=== PATIENT | female | born 1995 | race African-American/Black ===

== ENCOUNTER 2017-12-17 13:10 | Emergency (ER) | payer OTHER ==
[~2017-12-17] VITALS: Ht 165.1 cm; Wt 71.0 kg
[~2017-12-17 13:10] MED LIST: AMOX500T PO; TRAM50TA PO
[2017-12-17 13:22] VITALS: BP 124/74
[2017-12-17] MEDS ORDERED: HYDR30CR61 TP (13:40)
[2017-12-17] MEDS ORDERED: HYDR25TA PO (13:40)
[2017-12-17] MEDS ORDERED: IBUP800T19 PO (13:40)
--- NOTE | 2017-12-17 13:40 | PHYS DOC ---
Past History Past Medical History: No Pertinent History Past Surgical History: No Surgical History Smoking: Non-smoker Alcohol Use: None Drug Use: None Adult General Chief Complaint Chief Complaint: HEMORRHOIDS HPI HPI 22-year-old female patient state she had under stress and for the last 10 days did not eat well and did not have a good bowel movement for the last 7 days but had a loose stool yesterday and since last night had pain in the perianal area that getting worse with walking and straining herself. Patient denies fever and chills, history of anal fissure or hemorrhoid, constipation, abdominal pain, nausea and vomiting, . Patient states she took sitz bath without improvement of condition. Review of Systems Review of Systems Constitutional: Denies fever or chills [] Eyes: Denies change in visual acuity, redness, or eye pain [] HENT: Denies nasal congestion or sore throat [] Respiratory: Denies cough or shortness of breath [] Cardiovascular: No additional information not addressed in HPI [] GI: Denies abdominal pain, nausea, vomiting, bloody stools or diarrhea [] : Denies dysuria or hematuria [] Musculoskeletal: Denies back pain or joint pain [] Integument: Denies rash or skin lesions [] Neurologic: Denies headache, focal weakness or sensory changes [] Endocrine: Denies polyuria or polydipsia [] All other systems were reviewed and found to be within normal limits, except as documented in this note. Allergies Allergies Allergies Coded Allergies Type Severity Reaction Last Updated Verified No Known Drug Allergies 08/16/16 No Physical Exam Physical Exam Constitutional: Well developed, well nourished, mild distress, non-toxic appearance. [] HENT: Normocephalic, atraumatic Eyes: PERRLA, EOMI, conjunctiva normal, no discharge. [] Neck: Normal range of motion, no tenderness, supple, no stridor. [] Cardiovascular:Heart rate regular rhythm, no murmur [] Lungs & Thorax: Bilateral breath sounds clear to auscultation [] Abdomen: Bowel sounds normal, soft, no tenderness, no masses, no pulsatile masses. Rectal exam with present of cooling pan tender showed moderate tach at 5 and 7 o;clock inflammation without sign of thrombosed or anal fissure. Skin: Warm, dry, no erythema, no rash. [] Back: No tenderness, no CVA tenderness. [] Extremities: No tenderness, no cyanosis, no clubbing, ROM intact, no edema. [] Neurologic: Alert and oriented X 3, normal motor function, normal sensory function, no focal deficits noted. [] Psychologic: Affect normal, judgement normal, mood normal. [] EKG EKG [] Radiology/Procedures Radiology/Procedures [] Course & Med Decision Making Course & Med Decision Making discharge: I've spoken with the patient and/or caregivers. I've explained the patient's condition, diagnosis and treatment plan based on information available to me at this time. I've answered the patient's and/or caregivers questions and addressed any concerns. The patient and/or caregivers have a good understanding the patient's diagnosis, condition and treatment plan as can be expected at this point. Vital signs have been stabilized. The patient's condition is stable for discharge from the emergency department. The patient will pursue further outpatient evaluation with her primary care provider or other designated consulting physician as outlined in the discharge instructions. Patient and/or caregivers are agreeable to this plan of care and follow-up instructions have been explained in detail. The patient and/or caregivers have received these instructions in written format and expressed understanding of these discharge instructions. The patient and her caregivers are aware that if any significant change in condition or worsening of symptoms should prompt him to immediately return to this of the closest emergency department. If an emergent department is not readily available I would encourage him to call 911. Shen Disclaimer Shen Disclaimer This electronic medical record was generated, in whole or in part, using a voice recognition dictation system. Departure Departure: Impression: Primary Impression: Inflamed external hemorrhoid Additional Impressions: Anxiety Constipation Disposition: HOME, SELF-CARE (At 1336) Condition: STABLE Referrals: ANTHONY CHIN MD (PCP) Patient Instructions: Anxiety and Panic Attacks, Constipation, Adult, Hemorrhoids, Sitz Bath Additional Instructions: Drink plenty of liquids Follow-up with your primary care physician in 3-5 days Return to ER if not getting better Scripts Ibuprofen (IBUPROFEN) 800 Mg Tablet 1 TAB PO TID, #30 TAB Prov: GEORGE AGOSTO MD 12/17/17 Hydroxyzine Hcl (HYDROXYZINE HCL) 25 Mg Tablet 1 TAB PO QHS, #20 TAB Prov: GEORGE AGOSTO MD 12/17/17 Hydrocortisone (ANUSOL-HC) 30 Gm Cream..g. 1 DELIA TP BID, #30 GM 1 Refill Prov: GEORGE AGOSTO MD 12/17/17 Problem Qualifiers GEORGE AGOSTO MD Dec 17, 2017 13:40
== END 2017-12-17 13:45 | disposition home or self-care (01) ==
LOC: ER 13:10
DX: K64.4 Residual hemorrhoidal skin tags (principal); F41.9 Anxiety disorder, unspecified; K59.00 Constipation, unspecified
CPT/HCPCS: 99283

== ENCOUNTER 2018-09-23 12:10 | Emergency (ER) | payer OTHER ==
[~2018-09-23] VITALS: Ht 160 cm; Wt 72.6 kg
[2018-09-23 12:10] VITALS: BP 113/70
[~2018-09-23 12:10] MED LIST changes: +HYDR25TA PO; +HYDR30CR61 TP; +IBUP800T19 PO
[2018-09-23] MEDS ORDERED: NAPR-695 PO (12:23)
[2018-09-23] MEDS ORDERED: CHLO15MO2 PO (12:24)
--- NOTE | 2018-09-23 12:24 | PHYS DOC ---
Past History Past Medical History: No Pertinent History Past Surgical History: Smoking: Non-smoker Alcohol Use: None Drug Use: None Adult General Chief Complaint Chief Complaint: DENTAL PROBLEM HPI HPI 23-year-old female presents with report of left mandibular dental pain primarily to wisdom tooth. Patient reports has had this pain for the last few weeks. Patient was supposed to follow up with dentist regarding wisdom tooth extraction but has not been able to. Reports some increased swelling to this area. Denies fever or chills. Denies known dental caries. Denies . Review of Systems Review of Systems Constitutional: Denies fever or chills [] HENT: Denies nasal congestion; reports toothache GI: Denies abdominal pain, nausea, vomiting, bloody stools or diarrhea [] /SOLAR PANEL INSTALLER: Denies dysuria or Integument: Denies rash or skin lesions [] Complete systems were reviewed and found to be within normal limits, except as documented in this note. Allergies Allergies Allergies Coded Allergies Type Severity Reaction Last Updated Verified No Known Drug Allergies 12/17/17 No Physical Exam Physical Exam Constitutional: Well developed, well nourished, no acute distress, non-toxic appearance. [] HENT: Normocephalic, atraumatic, oropharynx moist, gingival inflamed to left mandibular 3rd molar, no dental caries noted, prior dental filings to molars noted, no drainable abscess Eyes: Conjunctiva normal, no discharge. [] Neck: Normal range of motion, no tenderness, supple Lungs & Thorax: NO respiratory distress, normal respiratory rate Skin: Warm, dry Neurologic: Alert and oriented X 3, speech normal Psychologic: Affect normal, judgement normal, mood normal. [] EKG EKG [] Radiology/Procedures Radiology/Procedures [] Course & Med Decision Making Course & Med Decision Making Patient presents with report of dental pain to left third maxillary molar. No signs of drainable abscess. No signs of active dental caries. Symptomatic treatment offered with dental block which patient declined. IM Toradol therefore ordered but again patient refused. Patient stable for discharge with outpatient follow-up with PCP/dentist. Dental referral packet provided. Discussed findings and plan with patient, who acknowledges understanding and agreement. Dragon Disclaimer Dragon Disclaimer This electronic medical record was generated, in whole or in part, using a voice recognition dictation system. Departure Departure: Impression: Primary Impression: Dentalgia Disposition: HOME, SELF-CARE Condition: STABLE Referrals: ANTHONY CHIN MD (PCP) Patient Instructions: Toothache-Brief Scripts Chlorhexidine Gluconate (PERIDEX) 15 Ml Mouthwash 15 ML PO BID for dentalgia, #946 ML Prov: SONI COLON DO 09/23/18 Naproxen (NAPROXEN) 375 Mg Tablet 1 TAB PO TID PRN PRN for PAIN, #20 TAB 0 Refills Prov: SONI COLON DO 09/23/18 SONI COLON DO Sep 23, 2018 12:24
[2018-09-23] MEDS ORDERED: KETOROLAC 30 MG/ML VIAL. IM ONE (12:45)
== END 2018-09-23 12:35 | disposition home or self-care (01) ==
LOC: ER 12:10
DX: K08.89 Other specified disorders of teeth and supporting structures (principal); R22.0 Localized swelling, mass and lump, head
CPT/HCPCS: 99283

== ENCOUNTER 2019-10-13 01:03 | Emergency (ER) | payer OTHER ==
[~2019-10-13] VITALS: Ht 165.1 cm; Wt 89.8 kg
[~2019-10-13 01:03] MED LIST changes: +CHLO15MO2 PO; +NAPR-695 PO
[2019-10-13 01:10] VITALS: BP 109/42
[2019-10-13 01:44] LABS: BACTERIA,URINE FEW /HPF (0-FEW); BILIRUBIN,URINE NEG (NEG); CLARITY,URINE HAZY; COLOR,URINE YELLOW; GLUCOSE,URINE NEG (NEG); NITRITE,URINE NEG (NEG); RBC,URINE OCC /HPF (0-2); SQUAMOUS EPITHELIAL CELL,UR FEW /LPF; UROBILINOGEN,URINE 0.2 mg/dL (0.2 mg/dL); WBC,URINE >40 /HPF (0-4)
[2019-10-13 01:47] LABS: U PREG PATIENT NEGATIVE (NEG)
[2019-10-13] MEDS ORDERED: CEPH-264 PO (01:50)
--- NOTE | 2019-10-13 01:50 | PHYS DOC ---
Past History Past Medical History: No Pertinent History Past Surgical History: Smoking: Non-smoker Alcohol Use: None Drug Use: None Adult General Chief Complaint Chief Complaint: PAIN ON URINATION HPI HPI Patient is a 24 year old female who presents with complaint of dysuria. The patient states that her symptoms have been present over the past 2 days. His nose increased urinary frequency and burning when urinating. Has not noticed any blood in her urine. States that she has had history of urinary tract infection in the past and states that her symptoms do feel similar. Has not recently been on any antibiotic therapy. Denies pelvic pain, abnormal vaginal bleeding, fever, or vomiting. Hasn't taking medications for symptoms. Review of Systems Review of Systems Constitutional: Denies fever or chills [] Eyes: Denies change in visual acuity, redness, or eye pain [] HENT: Denies nasal congestion or sore throat [] Respiratory: Denies cough or shortness of breath [] Cardiovascular: Denies chest pain or edema[] GI: Denies abdominal pain, nausea, vomiting, bloody stools or diarrhea [] : Dysuria, increased urinary frequency, denies hematuria[] Musculoskeletal: Denies back pain or joint pain [] Integument: Denies rash or skin lesions [] Neurologic: Denies headache, focal weakness or sensory changes [] Endocrine: Denies polyuria or polydipsia [] All other systems were reviewed and found to be within normal limits, except as documented in this note. Allergies Allergies Allergies Coded Allergies Type Severity Reaction Last Updated Verified No Known Drug Allergies 12/17/17 No Physical Exam Physical Exam Constitutional: Well developed, well nourished, no acute distress, non-toxic ap pearance. [] HENT: Normocephalic, atraumatic, bilateral external ears normal, oropharynx moist, no oral exudates, nose normal. [] Eyes: PERRLA, EOMI, conjunctiva normal, no discharge. [] Neck: Normal range of motion, no tenderness, supple, no stridor. [] Cardiovascular:Heart rate regular rhythm, no murmur [] Lungs & Thorax: Bilateral breath sounds clear to auscultation [] Abdomen: Bowel sounds normal, soft, no tenderness, no masses, no pulsatile masses. [] Skin: Warm, dry, no erythema, no rash. [] Back: No tenderness, no CVA tenderness. [] Extremities: No tenderness, no cyanosis, no clubbing, ROM intact, no edema. [] Neurologic: Alert and oriented X 3, normal motor function, normal sensory function, no focal deficits noted. [] Current Patient Data Vital Signs Vital Signs Date Time Temp Pulse Resp B/P (MAP) Pulse Ox O2 Delivery O2 Flow Rate FiO2 10/13/19 01:10 99.0 78 16 99 Room Air Lab Results Laboratory Tests Test 10/13/19 01:21 Urine Collection Type Unknown Urine Color Yellow Urine Clarity Hazy Urine pH 6.5 Urine Specific [place] >=1.030 Urine Protein Neg (NEG-TRACE) Urine Glucose (UA) Neg mg/dL (NEG) Urine Ketones (Stick) Neg mg/dL (NEG) Urine Blood Neg (NEG) Urine Nitrite Neg (NEG) Urine Bilirubin Neg (NEG) Urine Urobilinogen Dipstick 0.2 mg/dL (0.2 mg/dL) Urine Leukocyte Esterase Mod (NEG) Urine RBC Occ /HPF (0-2) Urine WBC >40 /HPF (0-4) Urine Squamous Epithelial Cells Few /LPF Urine Bacteria Few /HPF (0-FEW) Urine Test Negative (NEG) EKG EKG Not performed[] Radiology/Procedures Radiology/Procedures Not performed[] Course & Med Decision Making Course & Med Decision Making Pertinent Labs and Imaging studies reviewed. (See chart for details) Urinalysis shows evidence of urinary tract infection. Started on oral Keflex in the emergency department. Written for seven-day course for outpatient treatment. Advised follow-up with primary doctor in 5 days for reevaluation if symptoms have not improved. Advised return to emergency department for any worsening symptoms. Patient was understanding and in agreement with treatment plan.[] Dragon Disclaimer Dragon Disclaimer This electronic medical record was generated, in whole or in part, using a voice recognition dictation system. Departure Departure: Impression: Primary Impression: Urinary tract infection Disposition: HOME, SELF-CARE Condition: STABLE Referrals: FIDELIA TALBERT MD (PCP) Patient Instructions: Urinary Tract Infection Additional Instructions: Follow-up with your primary doctor in 5 days if symptoms are not improving. Return to the emergency department for any worsening symptoms. Scripts Cephalexin (KEFLEX) 500 Mg Capsule 1 CAP PO BID for 7 Days, #14 CAP 0 Refills Prov: JLUIS MARTINO MD 10/13/19 Problem Qualifiers Primary Impression: Urinary tract infection Urinary tract infection type: site unspecified Hematuria presence: without hematuria Qualified Codes: N39.0 - Urinary tract infection, site not specified JLUIS MARTINO MD Oct 13, 2019 01:50
[2019-10-13] MEDS ORDERED: CEPHALEXIN 250 MG CAPSULE PO ONE (02:00)
== END 2019-10-13 02:16 | disposition home or self-care (01) ==
LOC: ER 01:03
DX: N39.0 Urinary tract infection, site not specified (principal)
CPT/HCPCS: 81001; 81025; 87086; 87186; 99284

== ENCOUNTER 2020-07-21 17:36 | Emergency (ER) | payer OTHER ==
[~2020-07-21] VITALS: Ht 165.1 cm; Wt 83.3 kg
[~2020-07-21 17:36] MED LIST changes: +CEPH-264 PO
[2020-07-21] MEDS ORDERED: ONDANSETRON PF 4 MG/2 ML VIAL. IVP ONE (18:00)
[2020-07-21] MEDS ORDERED: IV NORMAL SALINE 1,000ML 1,000 ML IV ONE (18:00)
[2020-07-21 18:35] LABS: BASO % 0 % (0-3); EOS % 0 % (0-3); HEMATOCRIT 32.1 % (36.0-47.0); LYMPH # 2.7 x10^3/uL (1.0-4.8); LYMPH % 32 % (24-48); MEAN CORPUSCULAR HEMOGLOBIN 23 pg (25-35); MEAN CORPUSCULAR HGB CONC 31 g/dL (31-37); MEAN CORPUSCULAR VOLUME 74 fL (79-100); MONO # 0.6 x10^3/uL (0.0-1.1); MONO % 7 % (0-9); NEUT # 5.3 x10^3uL (1.8-7.7); NEUT % 61 % (31-73); PLATELET COUNT 248 x10^3/uL (140-400); RED BLOOD COUNT 4.34 x10^6/uL (3.50-5.40); RED CELL DISTRIBUTION WIDTH 19.2 % (11.5-14.5); WHITE BLOOD COUNT 8.7 x10^3/uL (4.0-11.0)
[2020-07-21 18:42] LABS: CALCIUM 8.9 mg/dL (8.5-10.1); CREATININE 0.8 mg/dL (0.6-1.0); GFR 105.8; POTASSIUM 3.8 mmol/L (3.5-5.1)
[2020-07-21 18:47] LABS: ALBUMIN 3.8 g/dL (3.4-5.0); ALBUMIN/GLOBULIN RATIO 0.9 (1.0-1.7); TOTAL BILIRUBIN 0.2 mg/dL (0.2-1.0); TOTAL PROTEIN 8.1 g/dL (6.4-8.2)
--- NOTE | 2020-07-21 20:04 | PHYS DOC ---
Past History Past Medical History: No Pertinent History Past Surgical History: Smoking: Non-smoker Alcohol Use: None Drug Use: None General Adult EDM: Chief Complaint: ABDOMINAL PAIN HPI: HPI: "... I ve been vomiting.... I messed my period.... my tummy hurts... now I am hungry.. but I worried I am ... I am worried who is the daddy ... I had sex with 2 people in the same couple days... I have had 3 pregnancies all were complicated by malignant hypertension or that a eclampsia thing ... That was associated with the ... All 3 required C-sections.... emergent... I think they tried to give drugs.. but ended up with C- sections..." Patient is a 25 year old female who presents with above hx and complaints of abdomen discomfort and fear she is . Patient complains of vomiting and late for her menses which is very regular. Patient reportedly did do a urine test at home and she thought it read positive. Patient denies any intake of bad food. Patient denies any vaginal bleeding. Patient denies any active discharge. Patient has had previous STD of trichinosis which was treated. Patient denies any rough sex, dilldo, vibrators, rectal sex. Life time sex partners approx. 20. Patient denies any domestic abuse. Patient not currently on vitamins.. Patient states when she became eclamptic she she is had some loss of memory during these events because she was so sick. Patient is followed locally with Dr. Pabon and Dr. Delong for primary care. Patient currently plans to deliver this baby at [facility]. Does not have a CHIEF CONTRACT OFFICER yet. Patient denies any recent travel outside the [place] area. Patient denies any any specific ill contacts. No recent history of fever or chills. Has been very nauseated and vomited today which cannot be attributed questionable of food. Patient states he has no leg edema like she had when she became eclamptic with previous pregnancies. Patient denies alcohol, tobacco, marijuana or drug use. No history immunosuppression. Review of Systems: Review of Systems: Constitutional: Denies fever or chills Eyes: Denies change in visual acuity HENT: Denies nasal congestion or sore throat Respiratory: Denies cough or shortness of breath Cardiovascular: Denies chest pain or edema GI: Complains of abdomen discomfort, nausea, vomiting,. Patient denies bloody stools or diarrhea . Patient has missed current period. : Denies dysuria Musculoskeletal: Denies back pain or joint pain Integument: Denies rash Neurologic: Denies headache, focal weakness or sensory changes Endocrine: Denies polyuria or polydipsia Lymphatic: Denies swollen glands Psychiatric: Very anxious Family History: Family History: Noncontributory to presentation Current Medications: Current Meds: Current Medications Medications (Trade) Dose Ordered Sig/Maryuri Start Time Stop Time Status Last Admin Dose Admin Ondansetron HCl (Zofran) 4 mg 1X ONCE 07/21/20 18:00 07/21/20 18:01 DC 07/21/20 18:19 4 MG Sodium Chloride 1,000 ml @ 1,000 mls/hr 1X ONCE 07/21/20 18:00 07/21/20 18:59 DC 07/21/20 18:18 1,000 MLS/HR Allergies: Allergies: Allergies Coded Allergies Type Severity Reaction Last Updated Verified No Known Drug Allergies 07/21/20 No Physical Exam: PE: Constitutional: Mild distress, non-toxic appearance. [] HENT: Normocephalic, atraumatic, bilateral external ears normal, oropharynx moist, no oral exudates, nose normal. [] Eyes: PERRLA, EOMI, conjunctiva pale, no discharge. Glasses Neck: Normal range of motion, no tenderness, supple, no stridor. [] Cardiovascular:Heart rate regular rhythm, no murmur [] Lungs & Thorax: Bilateral breath sounds equal at apex on auscultation [] Abdomen: Bowel sounds normal, soft, no tenderness, no masses, no pulsatile masses. Obese. Large scar. Has a healing abscess right gluteal cheek. Vaginal exam shows os is closed. No focal areas of tenderness in adnexal or posterior compartment. Rectal exam hard stool no active bleeding. No cervical motion tenderness.( No availability for bedside ultrasound). No rebound tenderness. Skin: Warm, dry, no erythema, no rash. [] Back: No tenderness, no CVA tenderness. [] Extremities: No tenderness, no cyanosis, no clubbing, ROM intact, no edema. [] Neurologic: Alert and oriented X 3, normal motor function, normal sensory function, no focal deficits noted. [] DTRs are +2 at patella and brachial. Psychologic: Affect very anxious , judgement normal, mood normal. [] Current Patient Data: Labs: Laboratory Tests Test 07/21/20 18:13 White Blood Count 8.7 x10^3/uL (4.0-11.0) Red Blood Count 4.34 x10^6/uL (3.50-5.40) Hemoglobin 10.0 g/dL (12.0-15.5) L Hematocrit 32.1 % (36.0-47.0) L Mean Corpuscular Volume 74 fL (79-100) L Mean Corpuscular Hemoglobin 23 pg (25-35) L Mean Corpuscular Hemoglobin Concent 31 g/dL (31-37) Red Cell Distribution Width 19.2 % (11.5-14.5) H Platelet Count 248 x10^3/uL (140-400) Neutrophils (%) (Auto) 61 % (31-73) Lymphocytes (%) (Auto) 32 % (24-48) Monocytes (%) (Auto) 7 % (0-9) Eosinophils (%) (Auto) 0 % (0-3) Basophils (%) (Auto) 0 % (0-3) Neutrophils # (Auto) 5.3 x10^3uL (1.8-7.7) Lymphocytes # (Auto) 2.7 x10^3/uL (1.0-4.8) Monocytes # (Auto) 0.6 x10^3/uL (0.0-1.1) Eosinophils # (Auto) 0.0 x10^3/uL (0.0-0.7) Basophils # (Auto) 0.0 x10^3/uL (0.0-0.2) Sodium Level 136 mmol/L (136-145) Potassium Level 3.8 mmol/L (3.5-5.1) Chloride Level 101 mmol/L (98-107) Carbon Dioxide Level 24 mmol/L (21-32) Anion Gap 11 (6-14) Blood Urea Nitrogen 9 mg/dL (7-20) Creatinine 0.8 mg/dL (0.6-1.0) Estimated GFR (Cockcroft-Gault) 105.8 BUN/Creatinine Ratio 11 (6-20) Glucose Level 90 mg/dL (70-99) Calcium Level 8.9 mg/dL (8.5-10.1) Total Bilirubin 0.2 mg/dL (0.2-1.0) Aspartate Amino Transferase (AST) 15 U/L (15-37) Alanine Aminotransferase (ALT) 16 U/L (14-59) Alkaline Phosphatase 53 U/L (46-116) Total Protein 8.1 g/dL (6.4-8.2) Albumin 3.8 g/dL (3.4-5.0) Albumin/Globulin Ratio 0.9 (1.0-1.7) L Lipase 135 U/L (73-393) Vital Signs: Vital Signs Date Time Temp Pulse Resp B/P (MAP) Pulse Ox O2 Delivery O2 Flow Rate FiO2 07/21/20 17:48 99.0 89 18 114/76 (89) 99 Room Air EKG: EKG: [] Radiology/Procedures: Radiology/Procedures: [] Heart Score: Risk Factors: Risk Factors: DM, Current or recent (<one month) smoker, HTN, HLP, family history of CAD, obesity. Risk Scores: Score 0 - 3: 2.5% MACE over next 6 weeks - Discharge Home Score 4 - 6: 20.3% MACE over next 6 weeks - Admit for Clinical Observation Score 7 - 10: 72.7% MACE over next 6 weeks - Early Invasive Strategies Course & Med Decision Making: Course & Med Decision Making Pertinent Labs and Imaging studies reviewed. (See chart for details) Clear fluid diet only x 24 hrs. if active vomiting. Push fruit juices. Take daily with iron. Follow up pending cultures. Establish care with an CHIEF CONTRACT OFFICER and follow-up at the hospital you elect to deliver for continuity of care. Pt. declined to wait for US exam. Advised [facility] was already coming for US exam of the woman next door to her. Patient declined to wait for this exam. Patient given a prescription for vitamins with iron. Patient encouraged to return if any concerns but recommended she follow-up at the hospital where she plans to deliver for continuity of lab and physician care. Impression: 1. Abdomen pain 2. Nausea and vomiting 3. Gravid 4, term 3 by 4. History of preeclampsia and eclampsia with previous pregnancies 5. Microcytic hypochromic anemia Hgb= 10, MCV 74, HC 23 6. Blood Type A + Positive 7. [facility] [place]= [id number] - [] Dragon Disclaimer: Dragon Disclaimer: This electronic medical record was generated, in whole or in part, using a voice recognition dictation system. Departure Departure: Disposition: 01 DC HOME SELF CARE/HOMELESS Condition: STABLE Referrals: ANGELI DANIELS (PCP) Scripts #103/Iron Fumarate/Fa ( TABLET) 1 Each Tablet 1 TAB PO BID for ANEMIA, for 90 Days, #180 TAB 0 Refills Prov: NADIR WONG MD 07/21/20 Shen Disclaimer This chart was dictated in whole or in part using Voice Recognition software in a busy, high-work load, and often noisy Emergency Department environment. It may contain unintended and wholly unrecognized errors or omissions. Dragon Disclaimer This chart was dictated in whole or in part using Voice Recognition software in a busy, high-work load, and often noisy Emergency Department environment. It may contain unintended and wholly unrecognized errors or omissions. NADIR WONG MD Jul 21, 2020 20:04
[2020-07-21 20:14] LABS: BILIRUBIN,URINE NEG (NEG); CLARITY,URINE HAZY; COLOR,URINE AMBER; GLUCOSE,URINE NEG (NEG); NITRITE,URINE NEG (NEG); UROBILINOGEN,URINE 0.2 mg/dL (0.2 mg/dL)
[2020-07-21 20:15] LABS: BACTERIA,URINE 0 /HPF (0-FEW); RBC,URINE 0 /HPF (0-2); SQUAMOUS EPITHELIAL CELL,UR MOD /LPF; WBC,URINE RARE /HPF (0-4)
[2020-07-21 20:44] LABS: BARBITURATES NEG (NEG); BENZODIAZEPINES NEG (NEG); CANNABINOIDS POS (NEG); COCAINE NEG (NEG); METHADONE NEG (NEG); OPIATES POS (NEG); PHENCYCLIDINE NEG (NEG)
[2020-07-21 20:45] LABS: AMPHETAMINE/METHAMPHETAMINE NEG (NEG)
[2020-07-21] MEDS ORDERED: PREN-14 PO (21:42)
[2020-07-21 22:25] VITALS: BP 122/65
[2020-07-23 21:09] LABS: CHLAMYDIA PROBE Negative (Negative)
== END 2020-07-21 22:30 | disposition home or self-care (01) ==
LOC: ER 17:36
DX: O21.9 Vomiting of pregnancy, unspecified (principal); O99.011 Anemia complicating pregnancy, first trimester; R10.9 Unspecified abdominal pain; Z3A.00 Weeks of gestation of pregnancy not specified
CPT/HCPCS: 36415; 80053; 80307; 81001; 81025; 82150; 83690; 84702; 85025; 86900; 86901; 87086; 87491; 87591; 96361; 96374; 99283; J2405; J7030; Q0111

== ENCOUNTER → 2020-07-26 | Outpatient (CLI) | payer OTHER ==
[2020-07-21 22:25] VITALS: BP 122/65
[~2020-07-26] MED LIST changes: +IV NORMAL SALINE 1,000ML 1,000 ML ONE; +PREN-14 PO
--- NOTE | 2020-07-26 08:58 | RAD ---
EXAM: Obstetrics sonogram. HISTORY: Unsure dates. TECHNIQUE: Sonographic imaging of the pelvis was performed. COMPARISON: None. FINDINGS: The uterus measures 10.0 x 7.4 x 5.9 cm. The cervix is closed and measures 3.9 cm in length. There is an intrauterine gestational sac with yolk sac and pole. The mean sac diameter is 1.3 cm, corresponding with a gestational age of 6 weeks and 1 day. The crown-rump length is 3 mm, corresponding with a gestational age of 5 weeks and 6 days. The gestational age patient combined mean sac diameter and crown-rump length measurements is 6 weeks and 0 days. There is a normal configuration and normal size yolk sac. The gestational sac is normal in position and configuration. There is subtle early cardiac activity. No heart rate could be calculated at this early stage of gestation. The maternal ovaries are normal in size and demonstrate normal blood flow. There is a 2.5 cm complicated right ovarian cyst, possibly hemorrhagic in etiology. IMPRESSION: 1. Single intrauterine fetus with an estimated gestational age based on combined mean sac diameter and crown-rump length measurements of 6 weeks and 0 days. There is subtle early cardiac activity. Short-term can be performed to confirm viability if there is clinical concern. 2. 2.5 cm complicated right ovarian cyst. Electronically signed by: Jacklyn Burrell MD (07/26/2020 8:55 AM) [id number]
== END ==
LOC: US 07:54
PROVIDERS: ATTEND Family Medicine
DX: O26.841 Uterine size-date discrepancy, first trimester (principal); N83.201 Unspecified ovarian cyst, right side; Z78.9 Other specified health status; Z3A.01 Less than 8 weeks gestation of pregnancy
CPT/HCPCS: 76801; 76817